=== PATIENT | female | born 1990 | race Hispanic/Latino ===

== ENCOUNTER 2017-08-09 12:58 | Day surgery (SDC) | payer OTHER ==
[2017-08-03 15:46] VITALS: BMI 39.5
[2017-08-09] MEDS ORDERED: Ketorolac Tromethamine 30 MG/ML VIAL ONE (14:14)
[2017-08-09] MEDS ORDERED: CEFAZOLIN/Water 2 GM/20 ML SYRINGE ONE (14:15)
[2017-08-09] MEDS ORDERED: Iothalamate Meglumine 60% 50 ML VIAL FS ONE (16:14)
[2017-08-09] MEDS ORDERED: Bupivacaine/Epinephrine 0.25% 30 ML VIAL ONE (16:14)
[2017-08-09] MEDS ORDERED: Fentanyl 100 MCG/2 ML VIAL ONE (16:17)
[2017-08-09] MEDS ORDERED: Ondansetron HCl/PF 4 MG/2 ML Vial ONE (16:43)
[2017-08-09] MEDS ORDERED: PHENYLEPHRINE-NS 100 MCG/ML 10 ML SYRINGE ONE (16:43)
[2017-08-09] MEDS ORDERED: Propofol 200 MG/20 ML VIAL ONE (16:43)
[2017-08-09] MEDS ORDERED: Dexamethasone 20 MG/5 ML VIAL ONE (16:43)
[2017-08-09] MEDS ORDERED: Lidocaine 2% MPF 10 ML AMP (For Epidural Use) ONE (16:43)
[2017-08-09] MEDS ORDERED: Glycopyrrolate 0.2 MG/ML 5 ML SYRINGE ONE (16:43)
[2017-08-09] MEDS ORDERED: HYDROcodone/Acetaminophen 5/325 mg Tablet ONE (18:15)
--- NOTE | 2017-08-09 22:29 | OP ---
DATE OF PROCEDURE: 08/09/2017 PREOPERATIVE DIAGNOSIS: Symptomatic cholelithiasis. POSTOPERATIVE DIAGNOSIS: Symptomatic cholelithiasis OPERATION PERFORMED: Laparoscopic cholecystectomy with intraoperative cholangiogram. SURGEON: Nickolas Thurston MD ANESTHESIA: General endotracheal. INDICATIONS: The patient is a 27-year-old female who has Down syndrome. Recent laboratory studies revealed elevated liver function tests. Gallbladder ultrasound revealed cholelithiasis. I have recommended laparoscopic cholecystectomy. DESCRIPTION OF OPERATION: Informed consent was obtained. Patient was taken to the operating room w here general endotracheal anesthesia was obtained with the patient in supine position. Abdomen was prepped with ChloraPrep and draped in sterile fashion. Local anesthetic was infiltrated using 0.25% Marcaine with epinephrine. A 11 mm infraumbilical incision was created through which a Veress need le was passed into the peritoneal cavity and pneumoperitoneum established using carbon dioxide up to a pressure of 15 mmHg. An 11-mm trocar port was passed through this same incision. Laparoscopic c amera was passed through this port. Under direct vision, 3 additional 5 mm right upper quadrant por ts were placed. The gallbladder was grasped and retracted in cephalad direction. Infundibulum was grasped and retracted laterally and inferiorly. Careful dissection was carried out the apex of the gallbladder to identify the cystic duct and cystic artery. The artery was divided between clips petra ving two on the side to remain within the abdomen. The duct was clipped proximally and a cholangiog yuli was obtained. This revealed normal ductal anatomy without significant dilatation. There was qu ick passage of contrast into the duodenum. On the first couple of images, there was a rounded defec t up in the right hepatic duct. This did, however, act like an air bubble. I, therefore, flushed w ith saline and repeated the cholangiogram revealing no further evidence of either a stone or air soraya bles. The cholangiocatheter was removed and the duct was doubly clipped distally and divided. The gallbladder was carefully dissected out of the gallbladder fossa using electrocautery. It was remov ed through the umbilical port site. The fascia was closed with 0 Vicryl suture using a GraNee needl e. Right upper quadrant was irrigated and all irrigant was aspirated. There was no evidence of ble eding or bile leak. All ports and instruments were removed under direct vision. Pneumoperitoneum w as carefully evacuated. A 0.25% Marcaine with epinephrine was infiltrated in each port site. Skin edges approximated with 4-0 Monocryl subcuticular sutures and Dermabond was placed externally. Ther e were no complications. The patient tolerated the procedure well and was taken to recovery room in stable condition.
--- NOTE | 2017-08-10 08:25 | RAD ---
INTRAOPERATIVE CHOLANGIOGRAM: DATE: 08/09/17. COMPARISON: None. HISTORY: Cholecystectomy. FINDINGS: Three images from an intraoperative cholangiogram obtained. There is contrast media within the duodenum. There is contrast within nondilated intra- and extrahep atic biliary tree. Cholecystectomy clips are present. There is a linear filling defect involving the distal CBD, most evidence on the third image, which ma y be artifactual in nature. Correlation with real-time imaging is required. Otherwise, this study i s unremarkable. IMPRESSION: Intraoperative cholangiogram as above. POS: [facility]
== END 2017-08-09 19:19 | disposition home or self-care (01) ==
LOC: SDC 12:58
PROVIDERS: ATTEND Specialist
PROC: 0FT44ZZ Resection of Gallbladder, Percutaneous Endoscopic Approach (ICD-10-PCS; principal; 2017-08-09)
PROC: BF0C1ZZ Plain Radiography of Hepatobiliary System, All using Low Osmolar Contrast (ICD-10-PCS; principal; 2017-08-09)
DX: K80.10 Calculus of gallbladder with chronic cholecystitis without obstruction (principal); Q90.9 Down syndrome, unspecified; Z90.89 Acquired absence of other organs; Z98.890 Other specified postprocedural states
CPT/HCPCS: 47532; 88304; J0131; J1100; J1885; J2001; J2405; J2704; J3010; Q9961

== ENCOUNTER 2019-05-09 10:29 | Inpatient (IN) | payer OTHER ==
[2019-05-09 11:21] LABS: Analyzer IN Cardio ER; Base Excess (BEa) -3.4 mEq/L (-2.0 to +3.0); CO2 Tension 31.3 mmHg (35.0-45.0); Calcium, Ionized 1.07 mmol/L (1.12-1.30); Carboxyhemoglobin (COHb) 0.4 gm% (0.0-3.0); Hemoglobin (Hb) 13.3 g/dL (12.0-16.0); Potassium - ABG Lab 2.95 mmol/L (3.70-5.30); pH, Arterial 7.42 (7.35-7.45)
[2019-05-09] MEDS ORDERED: cefTRIAXone\\ROCEPHIN 2 GM VIAL ONE (11:23)
[2019-05-09] MEDS ORDERED: Azithromycin 500 MG VIAL ONE (11:23)
[2019-05-09 11:30] LABS: #Lymphocytes 0.6 thou/uL (1.20-3.40); #Monocytes 0.1 thou/uL (0.11-0.59); #Neutrophils 8.4 thou/uL (1.40-6.50); %Basophils 0.3 % (0.0-1.0); %Eosinophils 0.5 % (0.0-10.0); %Lymphocytes 6.9 % (21.0-51.0); %Monocytes 1.5 % (0.0-10.0); %Neutrophils 90.8 % (42.0-75.0); Hemoglobin 12.9 g/dL (12.0-16.0); Mean Corpuscular HGB CONC 34.4 g/dL (32.0-36.0); Mean Corpuscular Hemoglobin 34.3 pg (27.0-31.0); Mean Corpuscular Volume 99.7 fL (78.0-98.0); Mean Platelet Volume 7.7 fL (7.4-10.4); Platelet Count 195 thou/uL (130-400); RBC Distribution Width 11.7 % (11.5-14.5); Red Blood Cell (RBC) Count 3.76 mill/uL (4.20-5.40); White Blood Cell (WBC) Count 9.3 thou/uL (4.8-10.8)
[2019-05-09 11:31] LABS: Puncture Site L.B.
[2019-05-09 11:32] LABS: ALV-art Gradient 171.555 (0-20)
[2019-05-09 11:54] LABS: ALT (SGPT) 14 U/L (8-55); AST (SGOT) 20 U/L (5-34); Albumin 2.6 g/dL (3.5-5.0); Alkaline Phosphatase 113 U/L (40-150); Anion Gap 14 mmol/L (10-20); BUN (Urea Nitrogen) 5 mg/dL (7.0-18.7); Bilirubin, Total 0.3 mg/dL (0.2-1.2); Calc. Creatinine Clearance 0 mL/min (70-130); Calcium 7.4 mg/dL (7.8-10.44); Carbon Dioxide 23 mmol/L (22-29); Chloride 98 mmol/L (98-107); Estimated GFR-MDRD 88; Globulin 2.9 g/dL (2.4-3.5); Glucose 109 mg/dL (70-105); Potassium 3.1 mmol/L (3.5-5.1); Protein, Total 5.5 g/dL (6.0-8.3); Sodium 132 mmol/L (136-145)
--- NOTE | 2019-05-09 12:13 | RAD ---
PORTABLE CHEST: HISTORY: Dyspnea. Fever. COMPARISON: Chest film of 05/02/2019. FINDINGS: There has been significant change since the prior study. There is now diffuse confluent infiltrate t hroughout the right lung. The left lung remains aerated and clear. The thoracic scoliotic curvature is again noted. IMPRESSION: Diffuse right lung infiltrate is now noted. There may be associated right effusion. POS: [facility]
[2019-05-09] MEDS ORDERED: methylPREDNISolone Sod Succ/PF 125 MG/2 ML VIAL ONE (12:18)
[2019-05-09] MEDS ORDERED: Acetaminophen 325 MG TAB PO PRN (14:25)
[2019-05-09] MEDS ORDERED: Ondansetron ODT 4 MG TAB SL PRN (14:25)
[2019-05-09] MEDS ORDERED: Ondansetron PF 4 MG/2 ML Vial SLOW IVP PRN (17:47)
[2019-05-09] MEDS: Acetaminophen 325 MG TAB PO PRN (18:28)
[2019-05-09] MEDS: NS 0.9% w/ 20 MEQ KCL 1,000 ML IV SCH (18:28)
[2019-05-09] MEDS ORDERED: guaiFENesin ER 600 MG TAB PO SCH (21:00)
[2019-05-09] MEDS: guaiFENesin ER 600 MG TAB PO SCH (21:05)
[2019-05-10] MEDS: NS 0.9% w/ 20 MEQ KCL 1,000 ML IV SCH ×5 (03:22→23:51)
[2019-05-10 05:27] LABS: #Lymphocytes 0.6 thou/uL (1.20-3.40); #Monocytes 0.2 thou/uL (0.11-0.59); #Neutrophils 7.2 thou/uL (1.40-6.50); %Basophils 0.1 % (0.0-1.0); %Eosinophils 0.2 % (0.0-10.0); %Lymphocytes 7.7 % (21.0-51.0); %Monocytes 2.6 % (0.0-10.0); %Neutrophils 89.4 % (42.0-75.0); Hemoglobin 10.5 g/dL (12.0-16.0); Mean Corpuscular HGB CONC 33.7 g/dL (32.0-36.0); Mean Corpuscular Hemoglobin 34.3 pg (27.0-31.0); Mean Platelet Volume 8.1 fL (7.4-10.4); Platelet Count 187 thou/uL (130-400); RBC Distribution Width 11.7 % (11.5-14.5); Red Blood Cell (RBC) Count 3.07 mill/uL (4.20-5.40); White Blood Cell (WBC) Count 8.1 thou/uL (4.8-10.8)
[2019-05-10 05:50] LABS: Anion Gap 13 mmol/L (10-20); BUN (Urea Nitrogen) 5 mg/dL (7.0-18.7); Calc. Creatinine Clearance 153 mL/min (70-130); Calcium 7.2 mg/dL (7.8-10.44); Carbon Dioxide 21 mmol/L (22-29); Chloride 103 mmol/L (98-107); Estimated GFR-MDRD Greater than 90; Glucose 116 mg/dL (70-105); Potassium 3.7 mmol/L (3.5-5.1); Sodium 133 mmol/L (136-145)
--- NOTE | 2019-05-10 08:36 | RAD ---
XR Chest 1 View Portable History: Dyspnea Comparison: Chest radiograph June 2016 Findings: Small effusions. Moderate edema. No pneumothorax. Pulmonary arteries are dilated. Heart siz e is enlarged. Impression: Cardiomegaly, moderate edema, and small effusions all indicating congestive heart failure .
[2019-05-10] MEDS: guaiFENesin ER 600 MG TAB PO SCH ×2 (09:55→20:36)
[2019-05-10] MEDS: Azithromycin 500 MG in Sodium Chloride 0.9% 250 ML 250 ML IVPB SCH (09:55)
[2019-05-10] MEDS: cefTRIAXone\\ROCEPHIN 1 GM in Sodium Chloride 0.9% 100 ML IVPB SCH (09:55)
[2019-05-10] MEDS: Acetaminophen 325 MG TAB PO PRN ×2 (18:32→22:34)
--- NOTE | 2019-05-10 22:44 | CON ---
DATE OF CONSULTATION: 05/10/2019 HISTORY OF PRESENT ILLNESS: Ms. Lewis is a wonderful, pleasant 29-year-old female who was admitted yesterday afternoon with pneumonia. Talking to the nurses and the respiratory therapist, she appeared quite ill on admission with a respiratory rate in the 30s. She would not tolerate BiPAP. Respiratory therapist had the excellent idea to try her on a high-flow cannula and she has done better with that. Her mother says that she is much better today than she was yesterday. The history is provided by the mother because the patient has Down syndrome. She has never been ill like this before. She has no history of aspiration. Her mother says she does not have a heart murmur. She has had a febrile illness since last Tuesday and her mother has actually been sleeping with her just to keep closer tabs on her. PAST MEDICAL HISTORY: Remarkable for hypothyroidism and a cholecystectomy. SOCIAL HISTORY: She is a nonsmoker, nondrinker, and nondrug user. ALLERGIES: SHE HAS NO DRUG ALLERGIES. FAMILY HISTORY: Negative for lung disease in her early age. MEDICATIONS: Prior to admission include; 1. Synthroid. 2. Oral contraceptive agents. PHYSICAL EXAMINATION: GENERAL: She is in no distress. She is breathing in the high 20s. She had some symmetrical respiratory and abdominal wall motion and no signs of fatigue. She was sleeping a lot. Her mother says she was up all night last night. Her mother feels like she is catching up today. VITAL SIGNS: She is afebrile, heart rates in the 90s, blood pressure 124/83, respiratory rate is 24 this afternoon. HEENT: She has Down facies. Pupils are equal. Extraocular movements appear full. Sclerae anicteric. NECK: Supple. LUNGS: Remarkable for crackles in her right chest. Left lung is clear with the exception of end-expiratory wheezes on the left. HEART: Regular rhythm. ABDOMEN: Soft and nontender. EXTREMITIES: Without clubbing, cyanosis, or edema. She will generate a good cough to command. LABORATORY DATA: White count is 8.1, hemoglobin 10.5, platelets 187. Sodium 133, potassium 3.7, chloride 103, bicarb 21, BUN 5, creatinine 0.61, glucose 116, albumin is 2.6. IMPRESSION: A viral illness followed by community-acquired bacterial pneumonia. Given that she did not improve with Omnicef as an outpatient, broad antimicrobial coverage is indicated. She appears to have defervesced with Rocephin and Zithromax. I would recommend decreasing her IV fluids at this point. She is drinking plenty of water according to her mother. Hopefully, she is starting to show signs of improvement. Her mother is adamant that she is much better than she was yesterday. My 1st impression was that she probably need to be in the critical care unit and even might need to be intubated, but I sat in the room with her for probably 25 minutes, watching her breathe and talking to her mother and I left the room feeling like it was safe to continue with current care measures. Mother is comfortable with this approach. This is a 70-minute consult, 50% of the time was spent on the unit coordinating care. Job ID: [id number] MTDJonathan
[2019-05-11 05:13] LABS: #Eosinphils 0.1 thou/uL (0.0-0.7); #Lymphocytes 1.3 thou/uL (1.20-3.40); #Monocytes 0.4 thou/uL (0.11-0.59); #Neutrophils 8.5 thou/uL (1.40-6.50); %Basophils 0.1 % (0.0-1.0); %Eosinophils 0.7 % (0.0-10.0); %Lymphocytes 12.9 % (21.0-51.0); %Monocytes 3.7 % (0.0-10.0); %Neutrophils 82.6 % (42.0-75.0); Hemoglobin 10.8 g/dL (12.0-16.0); Mean Corpuscular HGB CONC 33.5 g/dL (32.0-36.0); Mean Corpuscular Hemoglobin 34.2 pg (27.0-31.0); Mean Platelet Volume 8.1 fL (7.4-10.4); Platelet Count 196 thou/uL (130-400); RBC Distribution Width 11.9 % (11.5-14.5); Red Blood Cell (RBC) Count 3.16 mill/uL (4.20-5.40); White Blood Cell (WBC) Count 10.2 thou/uL (4.8-10.8)
[2019-05-11 05:35] LABS: Iron 22 ug/dL (50-170); Iron Binding Capacity, Total 143 mcg/dL (265-497)
[2019-05-11 06:07] LABS: Folate (Folic Acid) 12.8 ng/mL (7.0-31.4)
--- NOTE | 2019-05-11 08:05 | RAD ---
EXAM: XR Chest 1 View Portable PROVIDED CLINICAL HISTORY: Pneumonia. Follow-up evaluation. COMPARISON: 05/10/2019 FINDINGS: There are bilateral interstitial and alveolar opacities much greater on the right with areas of conso lidation seen in the right midlung zone and right lung base and to a lesser extent at the left lung base. There are associated bilateral pleural effusions. The right cardiac border is obscured. Right c onvex scoliosis thoracic spine is seen. No other interval change. IMPRESSION: 1. Bilateral interstitial and alveolar opacities much greater on the right. Findings may be related t o infectious process or possibly atypical infectious process. 2. Small bilateral pleural effusions.
[2019-05-11] MEDS: Acetaminophen 325 MG TAB PO PRN ×2 (08:56→15:40)
[2019-05-11] MEDS: guaiFENesin ER 600 MG TAB PO SCH ×2 (08:57→20:44)
[2019-05-11] MEDS: NS 0.9% w/ 20 MEQ KCL 1,000 ML IV SCH ×2 (09:34→20:47)
--- NOTE | 2019-05-11 09:44 | PRG ---
DATE OF SERVICE: 05/11/2019 SUBJECTIVE: Ms. Lewis actually looks a little better today. She was sitting on the bedside commode when I evaluated her. She is minimally verbal, but her mother was with her all night and said she had a better night. OBJECTIVE: VITAL SIGNS: She is afebrile, heart rate is 112, respiratory rate is in the high 20s, oximetry is 98% on 35% now, and blood pressure 136/96. LUNGS: Still remarkable for crackles on the right and a little on the left. HEART: Regular rhythm. S1 and S2 are normal. ABDOMEN: Soft and nontender. LABORATORY DATA: White count 10.2, hemoglobin 10.8, and platelets 196. ASSESSMENT AND PLAN: Pneumonia, community acquired, likely after a viral illness. She is clinically improving on a daily basis. Blood cultures remain negative. She will continue on broad antimicrobial coverage given that her pneumonia developed while she was on Omnicef. It is certainly possible that this represents an atypical organism. We will go ahead and decrease her IV fluids a little more given that her p.o. intake appears to be adequate. Job ID: [id number]
[2019-05-11] MEDS: Azithromycin 500 MG in Sodium Chloride 0.9% 250 ML 250 ML IVPB SCH (10:51)
[2019-05-11] MEDS: cefTRIAXone\\ROCEPHIN 1 GM in Sodium Chloride 0.9% 100 ML IVPB SCH (10:51)
--- NOTE | 2019-05-11 14:38 | HP ---
She was transferred in from the emergency room to the ICU. CHIEF COMPLAINT: On admission from the ER, the patient was found to have shortness of breath with O2 sats in the 70s on room air. On admission, she was found to have pneumonia in the right lobe. HISTORY OF PRESENT ILLNESS: This patient is a 29-year-old female, who has Down syndrome. She presented to office today with shortness of breath, fever, tachypnea, tachycardia for 1 week. The patient is mostly nonverbal and can communicate very few words, who kept saying "ow" when she would touch her chest. The patient's mother took her to an urgent care a week ago, was prescribed cefdinir for congestion and sent home. The patient's mother reports she began to get worse 2 days ago, not sleeping, does not appear for any confusion when she was in office. Upon presentation into the office, the patient's O2 sats were 68% on room air. The patient normally does well without any problems, but mother said the fever has gotten into 103.7 at home and given Tylenol and ibuprofen and it has only come down to 99 at home and then will spike for about 30 to 45 minutes and then spikes back up. Chest x-ray was presented in the ER showed pneumonia to the right side. The patient was placed on a BiPAP machine and admitted into the IMCU for further workup. Therefore, due to low O2 sats and vitals on presentation, the patient was admitted into the hospital for further evaluation. Lab work has been fairly unremarkable with no other acute findings. PAST MEDICAL HISTORY: Includes; 1. Down syndrome. 2. Hyperlipidemia. 3. Hypothyroidism. PAST SURGICAL HISTORY: Includes gallbladder removal. SOCIAL HISTORY: The patient does not smoke or drink. The patient's mother does not smoke or drink. Mother is her primary director employee safety and health at home. She lives with her mom and her dad. The patient is verbal, says a few words. She is able to communicate very briefly with about 30 words per the mother. PSYCHIATRIC HISTORY: Negative. ALLERGIES: THE PATIENT DOES NOT HAVE ANY ALLERGIES. MEDICATION LIST: On admission, she takes levothyroxine 25 mcg oral tablet by mouth daily. She is also on a low-dosage control pill. REVIEW OF SYSTEMS: GENERAL: Weakness, fatigue, fever, chills, and body aches per the mother, with the patient touching her chest saying "ow." Fever at home was 103.2. HEENT: Nonsignificant drainage from eyes, ears, nose, or throat. No sores or lesions. RESPIRATORY: Dyspnea and tachypnea per the mother, also complains of cough that was productive. Mother denies the patient having any severe chest pain, edema, sweating, or palpitations that she could tell. The mother denies any nausea, diarrhea, or abdominal pain. Reports that the patient is eating well and drinking well. NEUROMUSCULAR: Mother denies any significant pain. SKIN: Mother reports her being hot to touch and very dry. NEUROLOGICAL: She has Down syndrome. She is only to able to communicate with a few words. PHYSICAL EXAMINATION: VITAL SIGNS: She had a fever of 100.3, blood pressure 100/60, she was 67% on room air, heart rate was 128, and respiratory rate was 29. GENERAL: The patient appears in slight distress with breathing. She is more of a pursed lip breathing with dry mucous membranes. She is a female. She smiles and interacting with provider. HEENT: Normocephalic. Pupils are round, equal, and reactive. TMs are clear. Nares and pharynx are clear. NECK: Supple. Trachea is midline. CHEST: Rales bilaterally with diminished breath sounds. O2 sats are 68% on room air. BREASTS: Deferred. CARDIOVASCULAR: She is tachycardic. There is no peripheral edema. Capillary refill is less than 3. ABDOMEN: Soft, nontender. : Deferred. EXTREMITIES: Did not have any clubbing, cyanosis, or edema. SKIN: Warm to touch, hot, pale, once again with dry mucous membranes. NEUROLOGIC: The patient is able to smile, lift her eyebrows, she does grab hands and had good muscle, gait, and strength when walking. Sensory exam is intact. LABORATORY DATA: Laboratory data workup is posted. ASSESSMENT: A 29-year-old female diagnosed with; 1. Right lower lobe pneumonia. 2. Down syndrome. 3. Fever. 4. Tachycardia. 5. Tachypnea with low oxygen saturation. PLAN: Plan is to monitor, hydrate, give antibiotics, medications with serial re-evaluation on the patient in the morning. Plan is also to include repeat a chest x-ray. Dictated by Usha Asif NP, for Dr. Johana Lawrence. Job ID: [id number] [facility]
[2019-05-11] MEDS: Acetaminophen 325 MG TAB PO SCH (20:44)
[2019-05-11] MEDS: Ferrous Sulfate 325 MG TAB PO SCH (20:44)
[2019-05-12] MEDS: Acetaminophen 325 MG TAB PO SCH ×6 (00:33→21:03)
[2019-05-12 05:16] LABS: #Eosinphils 0.1 thou/uL (0.0-0.7); #Lymphocytes 1.2 thou/uL (1.20-3.40); #Monocytes 0.5 thou/uL (0.11-0.59); #Neutrophils 9.3 thou/uL (1.40-6.50); %Basophils 0.1 % (0.0-1.0); %Eosinophils 0.7 % (0.0-10.0); %Monocytes 4.1 % (0.0-10.0); %Neutrophils 84.1 % (42.0-75.0); Hemoglobin 11.5 g/dL (12.0-16.0); Mean Corpuscular HGB CONC 33.2 g/dL (32.0-36.0); Mean Corpuscular Hemoglobin 33.8 pg (27.0-31.0); Mean Platelet Volume 8.5 fL (7.4-10.4); Platelet Count 204 thou/uL (130-400); RBC Distribution Width 12.1 % (11.5-14.5); Red Blood Cell (RBC) Count 3.39 mill/uL (4.20-5.40)
--- NOTE | 2019-05-12 09:02 | RAD ---
PORTABLE CHEST ONE VIEW: 05/12/2019 5:07 a.m. HISTORY: Pneumonia. COMPARISON: Exam from the previous day. FINDINGS: The heart size is normal. There are bilateral lung opacities, right greater than left, likely due to pneumonia, with accompanying small effusions, unchanged. POS: [facility]
[2019-05-12] MEDS: Docusate 100 MG CAP PO SCH (09:31)
[2019-05-12] MEDS: Ferrous Sulfate 325 MG TAB PO SCH ×2 (09:31→21:03)
[2019-05-12] MEDS: guaiFENesin ER 600 MG TAB PO SCH ×2 (09:31→21:03)
[2019-05-12] MEDS: cefTRIAXone\\ROCEPHIN 1 GM in Sodium Chloride 0.9% 100 ML IVPB SCH (11:32)
[2019-05-12] MEDS: Azithromycin 500 MG in Sodium Chloride 0.9% 250 ML 250 ML IVPB SCH (11:33)
[2019-05-12] MEDS ORDERED: Albuterol Sulfate 1.25 MG/3 ML NEB NEB PRN (15:00)
--- NOTE | 2019-05-12 15:20 | PRG ---
DATE OF SERVICE: 05/12/2019 SERVICE: Pulmonary Medicine. INTERVAL HISTORY: The patient is doing okay from respiratory standpoint. She does not like using the high-flow nasal cannula. She constantly pulls on it. Because of this, she actually got a little skin tear on her lip. We de-escalated to the nasal cannula. This is more reliable way to deliver her oxygen because she does not mess with it. There were no significant other overnight events. She recently got up to the bathroom, and so she is a touch more tachycardic today. Additionally, the albuterol caused her to have increasing tachyarrhythmia. PHYSICAL EXAMINATION: VITAL SIGNS: Afebrile. Pulse 131, blood pressure 159/91, respirations 31, saturation 93% on 4 L nasal cannula. GENERAL: The patient is awake and alert. She is in mild respiratory distress with tachypnea. HEENT: Normocephalic and atraumatic. Sclerae are white. Conjunctivae are pink. Oral mucosa is moist without lesions. LUNGS: Decent air entry. There are extensive rhonchi, crackles and wheezing present. HEART: Normal rate, regular. ABDOMEN: Soft, nontender, nondistended. Bowel sounds are positive. MUSCULOSKELETAL: No cyanosis or clubbing. There is no pitting in the bilateral lower extremities. NEUROLOGIC: Grossly nonfocal. LABORATORY DATA: WBC 11.0, hemoglobin 11.5, and platelets 204,000. PH 7.42, pCO2 of 31, PO2 of 46. Sodium 133. Basic metabolic profile is otherwise unremarkable. TIBC and iron stores are low. Folate and B12 levels are within the normal limits. Liver function studies are unremarkable. Lactate 1.6. Blood cultures x2 are unremarkable. IMAGING: Chest x-ray demonstrates bilateral pleural effusions, and extensive infiltrates throughout bilateral lung babb. The right appears to be a little bit worse than the left. ASSESSMENT: 1. Acute hypoxic respiratory failure. 2. Community-acquired pneumonia. DISCUSSION AND PLAN: Agree with current antimicrobial coverage. I will send a respiratory virus panel. We will also get a BNP, and troponin. Pulmonary/Critical Care will follow very closely. Job ID: [id number]
[2019-05-12] MEDS ORDERED: predniSONE 20 MG TAB PO SCH (15:30)
[2019-05-12 16:11] LABS: Troponin I Less than 0.010 ng/mL (< 0.028)
[2019-05-12] MEDS ORDERED: Furosemide 20 MG/2 ML VIAL SLOW IVP SCH (17:15)
[2019-05-12] MEDS ORDERED: Albuterol Sulfate 1.25 MG/3 ML NEB INH SCH (19:00)
[2019-05-12] MEDS: diphenhydrAMINE 25 MG CAP PO PRN (21:03)
[2019-05-13] MEDS: Acetaminophen 325 MG TAB PO SCH ×6 (01:18→20:42)
[2019-05-13 07:30] LABS: Anion Gap 12 mmol/L (10-20); BUN (Urea Nitrogen) 6 mg/dL (7.0-18.7); Calc. Creatinine Clearance 147 mL/min (70-130); Calcium 7.6 mg/dL (7.8-10.44); Carbon Dioxide 27 mmol/L (22-29); Chloride 100 mmol/L (98-107); Estimated GFR-MDRD Greater than 90; Glucose 115 mg/dL (70-105); Potassium 4.1 mmol/L (3.5-5.1); Sodium 135 mmol/L (136-145)
[2019-05-13 07:41] LABS: Band 8 % (5-11); Hemoglobin 11.6 g/dL (12.0-16.0); Large Platelets SLIGHT; Lymphocytes 6 % (21-51); MDiff Complete? YES; Mean Corpuscular HGB CONC 34.3 g/dL (32.0-36.0); Mean Corpuscular Hemoglobin 35.1 pg (27.0-31.0); Mean Platelet Volume 9.2 fL (7.4-10.4); Monocytes 3 % (0-10); Neutrophil 83 % (42-75); Platelet Count 222 thou/uL (130-400); RBC Distribution Width 12.1 % (11.5-14.5); Toxic Granulation SLIGHT; White Blood Cell (WBC) Count 11.4 thou/uL (4.8-10.8)
[2019-05-13] MEDS ORDERED: predniSONE 20 MG TAB PO SCH (08:00)
--- NOTE | 2019-05-13 08:59 | RAD ---
AP CHEST: HISTORY: Pneumonia followup. ICU followup. Pleural effusions. COMPARISON: 05/12/2019 FINDINGS: There are bilateral alveolar infiltrates and bilateral effusions. IMPRESSION: Findings are unchanged from yesterday. POS: [facility]
[2019-05-13] MEDS: Docusate 100 MG CAP PO SCH (09:07)
[2019-05-13] MEDS: Ferrous Sulfate 325 MG TAB PO SCH ×2 (09:08→20:41)
[2019-05-13] MEDS: guaiFENesin ER 600 MG TAB PO SCH ×2 (09:08→20:41)
[2019-05-13] MEDS ORDERED: Furosemide 20 MG/2 ML VIAL SLOW IVP SCH (10:30)
[2019-05-13] MEDS: cefTRIAXone\\ROCEPHIN 1 GM in Sodium Chloride 0.9% 100 ML IVPB SCH (11:06)
--- NOTE | 2019-05-13 11:15 | PRG ---
DATE OF SERVICE: 05/13/2019 SERVICE: Pulmonary Medicine. INTERVAL HISTORY: The patient is doing okay from respiratory standpoint. She seems to be holding her own for the most part. She cannot provide any additional elements of the history. Last night, she continued to remove her oxygen. As such, she had intermittent desaturation. PHYSICAL EXAMINATION: VITAL SIGNS: Currently, afebrile with a T-max of 99.4. Pulse 104, blood pressure 109/80, respirations 27, and saturation 90% on high-flow nasal cannula. GENERAL: The patient is awake and alert, in no apparent distress. LUNGS: Very good air entry. Extensive crackles are present. No prolonged expiratory phase or wheezing is appreciated. HEART: Tachycardic. Regular. ABDOMEN: Soft, nontender, and nondistended. Bowel sounds are positive. MUSCULOSKELETAL: No cyanosis or clubbing. There is no pitting in the bilateral lower extremities. NEUROLOGIC: Grossly nonfocal. LABORATORY DATA: WBC 11.4, hemoglobin 11.6, platelets 222,000. Basic metabolic profile is otherwise improving with a calcium of 7.6, sodium is improved to 135. Creatinine is stable. TSH falls within normal limits. Blood cultures x2 and respiratory virus panel are unremarkable. Fecal occult blood is positive. IMAGING: Chest x-ray demonstrates extensive bilateral infiltrates. There appears to be fluid in the fissure, and also a likely right-sided pleural effusion present. ASSESSMENT: 1. Acute hypoxic respiratory failure. 2. Community-acquired pneumonia. 3. Herpes simplex virus, suspected. DISCUSSION AND PLAN: I will send the lip lesion for an HSV 1 and 2 PCR. We will continue supportive care including antibiotics. I will give her an additional dose of Lasix today. We are looking forward to seeing the echocardiogram. If her oxygen requirements continue to trend upward, I do believe that empiric steroids will need to be initiated. Pulmonary/Critical Care will follow very closely. The patient's lungs are critically ill. If this progresses, there is a very strong likelihood that the patient will pass away from this issue. Job ID: [id number]
[2019-05-13] MEDS: diphenhydrAMINE 25 MG CAP PO PRN (20:42)
[2019-05-14] MEDS: Acetaminophen 325 MG TAB PO SCH ×6 (00:24→21:43)
[2019-05-14 05:06] LABS: #Eosinphils 0.1 thou/uL (0.0-0.7); #Lymphocytes 1.2 thou/uL (1.20-3.40); #Monocytes 0.6 thou/uL (0.11-0.59); #Neutrophils 8.6 thou/uL (1.40-6.50); %Basophils 0.1 % (0.0-1.0); %Eosinophils 0.9 % (0.0-10.0); %Lymphocytes 11.4 % (21.0-51.0); %Monocytes 5.2 % (0.0-10.0); %Neutrophils 82.3 % (42.0-75.0); Hemoglobin 11.5 g/dL (12.0-16.0); Mean Corpuscular HGB CONC 34.2 g/dL (32.0-36.0); Mean Corpuscular Hemoglobin 35.2 pg (27.0-31.0); Mean Platelet Volume 8.6 fL (7.4-10.4); Platelet Count 257 thou/uL (130-400); RBC Distribution Width 12.5 % (11.5-14.5); Red Blood Cell (RBC) Count 3.26 mill/uL (4.20-5.40); White Blood Cell (WBC) Count 10.4 thou/uL (4.8-10.8)
[2019-05-14 05:19] LABS: Anion Gap 15 mmol/L (10-20); BUN (Urea Nitrogen) 7 mg/dL (7.0-18.7); Calc. Creatinine Clearance 140 mL/min (70-130); Calcium 8.5 mg/dL (7.8-10.44); Carbon Dioxide 22 mmol/L (22-29); Chloride 101 mmol/L (98-107); Estimated GFR-MDRD Greater than 90; Glucose 92 mg/dL (70-105); Phosphorus 3.3 mg/dL (2.3-4.7); Potassium 4.4 mmol/L (3.5-5.1); Sodium 134 mmol/L (136-145)
[2019-05-14] MEDS: guaiFENesin ER 600 MG TAB PO SCH ×2 (09:16→21:44)
[2019-05-14] MEDS: Ferrous Sulfate 325 MG TAB PO SCH ×2 (09:16→21:43)
[2019-05-14] MEDS: Docusate 100 MG CAP PO SCH (09:16)
--- NOTE | 2019-05-14 12:02 | PQF ---
ANASTACIA AWAN MICHAEL E MD [id number] [facility]- B09 [id number] CLINICAL DOCUMENTATION IMPROVEMENT CLARIFICATION FORM: ICD-10 Updated PLEASE DO AN ADDENDUM TO THE PROGRESS NOTE WITH ANY DOCUMENTATION UPDATES OR ADDITIONS AND CARRY THROUGH TO DC SUMMARY. THANK YOU. DATE: 05/14/2019 ATTN:DR. J Carlos KEE Please exercise your independent, professional judgment in responding to the clarification form. Clinical indicators are provided on the bottom of this form for your review. Please check appropriate box(s): [ ] Acute Respiratory Failure: [ ] with Hypoxia [ ] with Hypercapnia [ x ] Acute Respiratory Failure due to: Pneumonia [ ] Other diagnosis [ ] Unable to determine In addition, please specify: Present on Admission (POA): [ x ] Yes [ ] No [ ] Unable to determine For continuity of documentation, please document condition throughout progress notes and discharge summary. Thank You. CLINICAL INDICATORS - SIGNS / SYMPTOMS / LABS 05/09 ([facility]A) DX HYPOXIA PNEUMONIA SEPSIS 05/12 PN (V[facility]HYA) HYPOXEMIC- DE-SATS TO 80'S IF OFF O2 < 1 MINUTE 05/13 PN (VIDHYA) 2. ) HYPOXEMIA 05/14 PN (VIDHYA) 2). HYPOXEMIA RISK: PNEUMONIA ([facility]IDHYA) HYPOXIC TREATMENTS PULMONOLOGY CONSULT SUPPLEMENTAL O2 SERIAL CXR THANK YOU! NATHAN (This form is maintained as a part of the permanent medical record) 2014 [employer] All Rights Reserved [email or web address] [phone] MTDD
[2019-05-14] MEDS ORDERED: predniSONE 20 MG TAB PO SCH (13:15)
[2019-05-14] MEDS: cefTRIAXone\\ROCEPHIN 1 GM in Sodium Chloride 0.9% 100 ML IVPB SCH (13:19)
--- NOTE | 2019-05-14 13:30 | PRG ---
DATE OF SERVICE: 05/14/2019 SERVICE: Pulmonary Medicine. INTERVAL HISTORY: The patient is doing poorly from a respiratory standpoint. Her oxygen requirements still remain elevated. She cannot provide any additional elements of the history. She had another rough night. That being said, she slept most in the morning and is appearing a little bit more refreshed right now. PHYSICAL EXAMINATION: VITAL SIGNS: Afebrile, pulse 99, blood pressure 111/79, respirations 38, saturation 95% on high-flow nasal cannula delivering 54% FiO2. GENERAL: The patient is awake and alert. No apparent distress. LUNGS: Good air entry. Extensive crackling is present throughout bilateral lung babb. HEART: Normal rate, regular. ABDOMEN: Soft, nontender, and nondistended. Bowel sounds are positive. MUSCULOSKELETAL: No cyanosis or clubbing. There is no pitting in the bilateral lower extremities. NEUROLOGIC: Grossly nonfocal. LABORATORY DATA: WBC 10.4, hemoglobin 11.5, and platelets 257,000. Sodium 134. Basic metabolic profile, magnesium, and phosphorous are all essentially unremarkable. Her bicarb is downtrending to 22. Respiratory virus panel is unremarkable. Blood cultures x2 are negative. HSV is currently pending. IMAGING STUDIES: Echocardiogram demonstrates a normal ejection fraction. Mild mitral regurgitation is noted. No significant diastology is present. ASSESSMENT: 1. Acute hypoxic respiratory failure. 2. Community-acquired pneumonia, possible. 3. Herpes simplex virus, suspected. 4. Acute interstitial pneumonitis. DISCUSSION AND PLAN: I will get a CT of the chest to characterize the pattern of injury of her lung. I am going to empirically initiate steroids. Pulmonary/Critical Care will continue to follow along while the patient remains inhouse. Job ID: [id number]
--- NOTE | 2019-05-14 16:04 | CT ---
Exam: Head CT without contrast HISTORY: Shortness of breath. Eval for pulmonary infiltrate COMPARISON: None FINDINGS: Limited evaluation due to lack of IV contrast and due to motion degradation No mediastinal mass, lymphadenopathy or hematoma. Heart size is within normal limits. No significant pericardial fluid. Visualized aorta has a normal caliber Visualized upper solid organs are grossly unremarkable There are patchy groundglass and alveolar opacities throughout the lung parenchyma. Consolidation in the left lower lobe, right lower lobe and right upper lobe may also be due to multi lobar pneumonia versus aspiration versus atelectasis. There are small bilateral pleural effusions. There is a scoliotic S-shaped curvature of the thoracic spine. Sclerotic focus at T6 likely represent ing a small bone island. IMPRESSION: 1. Small bilateral pleural effusions 2. Diffuse groundglass opacities which may be due to edema. 3. Multi lobar consolidation with air bronchograms. Correlate for multi lobar pneumonia. Atelectasis or aspiration cannot noted. Continued surveillance is recommended.
[2019-05-14] MEDS: diphenhydrAMINE 25 MG CAP PO PRN (22:28)
[2019-05-14] MEDS: NS 0.9% w/ 20 MEQ KCL 1,000 ML IV SCH (22:28)
[2019-05-15] MEDS: Acetaminophen 325 MG TAB PO SCH ×6 (01:58→22:15)
[2019-05-15 05:45] LABS: #Lymphocytes 1.2 thou/uL (1.20-3.40); #Monocytes 0.5 thou/uL (0.11-0.59); #Neutrophils 6.2 thou/uL (1.40-6.50); %Basophils 0.6 % (0.0-1.0); %Eosinophils 0.4 % (0.0-10.0); %Lymphocytes 15.1 % (21.0-51.0); %Monocytes 6.3 % (0.0-10.0); %Neutrophils 77.7 % (42.0-75.0); Hemoglobin 11.1 g/dL (12.0-16.0); Mean Platelet Volume 8.9 fL (7.4-10.4); Platelet Count 290 thou/uL (130-400); RBC Distribution Width 12.5 % (11.5-14.5); Red Blood Cell (RBC) Count 3.09 mill/uL (4.20-5.40)
[2019-05-15] MEDS: Ferrous Sulfate 325 MG TAB PO SCH ×2 (08:13→20:32)
[2019-05-15] MEDS: predniSONE 20 MG TAB PO SCH (08:14)
[2019-05-15] MEDS: guaiFENesin ER 600 MG TAB PO SCH ×2 (08:14→20:32)
[2019-05-15] MEDS: Docusate 100 MG CAP PO SCH (08:14)
[2019-05-15] MEDS ORDERED: Furosemide 20 MG/2 ML VIAL SLOW IVP SCH (08:30)
[2019-05-15] MEDS: cefTRIAXone\\ROCEPHIN 1 GM in Sodium Chloride 0.9% 100 ML IVPB SCH (11:36)
[2019-05-15] MEDS ORDERED: Metoprolol Tartrate 25 MG TAB PO SCH (11:45)
--- NOTE | 2019-05-15 12:04 | PRG ---
DATE OF SERVICE: 05/15/2019 SERVICE: Pulmonary Medicine. INTERVAL HISTORY: The patient is doing okay from respiratory standpoint. After initiating steroids, cough seemed to viviana. Additionally, she got some consolidated sleep last night, which was good for the patient and her mom. She denies any overnight events, fevers, chills, or sputum production. Her oxygen requirements remained quite elevated. That being said, the patient appears to be less toxic today. She remains quite tachypneic. PHYSICAL EXAMINATION: VITAL SIGNS: Afebrile, pulse 120, blood pressure 146/101, respirations 40, and saturation 90% on 30 L of high-flow with 54% FiO2. HEENT: Normocephalic and atraumatic. Sclerae white. Conjunctivae pink. Oral mucosa is moist without lesions. LUNGS: Decent air entry. Crackles are much less intense today. No prolonged expiratory phase or wheezing is appreciated. HEART: Normal rate. Regular. ABDOMEN: Soft, nontender, and nondistended. Bowel sounds are positive. MUSCULOSKELETAL: No cyanosis or clubbing. There is no pitting in the bilateral lower extremities. NEUROLOGIC: Grossly nonfocal. LABORATORY DATA: WBC 8.0, hemoglobin 11.1, and platelets 290,000. Sodium 134. Basic metabolic profile, magnesium, and phosphorus are all unremarkable. Respiratory virus panel is unremarkable. Blood cultures x2 are negative. IMAGING: CT of the chest demonstrates bilateral ground-glass opacifications. There is also overt consolidating lesions that are scattered about the lung. Small bilateral pleural effusions are noted. The significance of this is unknown. Interstitial fullness is present. Consolidating lesions are limited to the right upper lobe, right middle lobe, and right lower lobe. ASSESSMENT: 1. Acute hypoxic respiratory failure. 2. Community-acquired pneumonia, possible. 3. Herpes simplex virus, suspected. 4. Acute interstitial pneumonitis. DISCUSSION AND PLAN: The patient is briefly not really behaving as though she is volume overloaded. I will introduce a beta tin. Hopefully, we can slow her heart rate down, which may have a positive impact on her cardiac output. If the HSV is positive, we will initiate antiviral therapy. I am going to give her another day or two to see how she progresses. If her oxygen requirements improve, we will hold the line. If not, I will send off multiple serologies looking at secondary cause of interstitial lung diseases. An ultrasound of the lung will be performed tomorrow morning. If there is a generous pocket of fluid, a thoracentesis will be considered. Job ID: [id number]
[2019-05-15] MEDS: Metoprolol Tartrate 25 MG TAB PO SCH (20:33)
[2019-05-15] MEDS: diphenhydrAMINE 25 MG CAP PO PRN (23:01)
[2019-05-16] MEDS: Acetaminophen 325 MG TAB PO SCH ×6 (01:21→22:12)
[2019-05-16 06:25] LABS: #Lymphocytes 1.7 thou/uL (1.20-3.40); #Monocytes 0.9 thou/uL (0.11-0.59); #Neutrophils 5.6 thou/uL (1.40-6.50); %Basophils 0.1 % (0.0-1.0); %Eosinophils 0.5 % (0.0-10.0); %Lymphocytes 20.3 % (21.0-51.0); %Monocytes 10.7 % (0.0-10.0); %Neutrophils 68.4 % (42.0-75.0); Hemoglobin 11.5 g/dL (12.0-16.0); Mean Corpuscular HGB CONC 33.7 g/dL (32.0-36.0); Mean Corpuscular Hemoglobin 34.8 pg (27.0-31.0); Mean Platelet Volume 8.8 fL (7.4-10.4); Platelet Count 294 thou/uL (130-400); RBC Distribution Width 12.4 % (11.5-14.5); Red Blood Cell (RBC) Count 3.31 mill/uL (4.20-5.40); White Blood Cell (WBC) Count 8.2 thou/uL (4.8-10.8)
--- NOTE | 2019-05-16 08:23 | RAD ---
PORTABLE AP CHEST X-RAY: HISTORY: Pneumonia. Bilateral pulmonary infiltrates. COMPARISON: 05/13/2019 FINDINGS: There are bilateral interstitial and, to a lesser extent, alveolar opacities within the lungs bilater ally. The parenchymal opacities, especially on the right, have improved when compared to the prior e xam. There is a tiny right pleural effusion with a questionable tiny left pleural effusion. The car diac silhouette is within normal limits. S-shaped scoliotic curvature of the thoracolumbar spine is again noted. IMPRESSION: 1. Improvement in bilateral interstitial and alveolar opacities, which may be related to improving p ulmonary edema or improving pneumonia. Continued followup to complete resolution is recommended. 2. Tiny right pleural effusion. POS: C
[2019-05-16] MEDS: predniSONE 20 MG TAB PO SCH (09:24)
[2019-05-16] MEDS: guaiFENesin ER 600 MG TAB PO SCH ×2 (09:24→20:27)
[2019-05-16] MEDS: Ferrous Sulfate 325 MG TAB PO SCH ×2 (09:24→20:27)
[2019-05-16] MEDS: Metoprolol Tartrate 25 MG TAB PO SCH ×2 (09:25→20:27)
[2019-05-16] MEDS: Docusate 100 MG CAP PO SCH (09:25)
[2019-05-16] MEDS: Acyclovir Sodium 700 MG, Admixture Fee 1 EACH in Sodium Chloride 0.9% 100 ML IVPB SCH ×2 (09:26→17:42)
[2019-05-16] MEDS: cefTRIAXone\\ROCEPHIN 1 GM in Sodium Chloride 0.9% 100 ML IVPB SCH (13:01)
--- NOTE | 2019-05-16 14:25 | PRG ---
DATE OF SERVICE: 05/16/2019 SERVICE: Pulmonary Medicine. INTERVAL HISTORY: The patient is actually doing much better today. Her cough still present but not nearly as severe as it was originally. She got started on acyclovir for the lesion on the lip. Ultimately, her oxygen requirements have improved dramatically overnight. Her heart rate is under much better control. There has been no interval change to her condition otherwise. PHYSICAL EXAMINATION: VITAL SIGNS: Afebrile, pulse 107, blood pressure 125/78, respirations 33, saturation 98%, now on 40% FiO2 with a flow of 30 L/minute. HEENT: Normocephalic and atraumatic. Sclerae white. Conjunctivae pink. Oral mucosa is moist without lesions. LUNGS: Decent air entry. Crackles still predominate. No prolonged expiratory phase or wheezing is appreciated. HEART: Normal rate, regular. ABDOMEN: Soft, nontender, nondistended. Bowel sounds are positive. MUSCULOSKELETAL: No cyanosis or clubbing. No pitting in the bilateral lower extremities. NEUROLOGIC: Grossly nonfocal. LABORATORY DATA: WBC 8.2, hemoglobin 11.5, platelets 294,000. Neutrophil count has returned to normal. Lymphocyte and monocyte count are actually rebounding. Basic metabolic profile, magnesium, and phosphorus are completely unremarkable. HSV-1 is positive by DNA PCR. HSV-2 is negative. Blood cultures, respiratory virus panel, and stool cultures are all negative to date. IMAGING DATA: Chest x-ray demonstrates interval improvement in the interstitial lung disease bilaterally, small bilateral pleural effusions are present. ASSESSMENT: 1. Acute hypoxic respiratory failure, improving. 2. Community-acquired pneumonia, unlikely. 3. Herpes labialis, status post initiation of therapy. 4. Interstitial pneumonitis, improving with steroids. DISCUSSION AND PLAN: It is still not quite clear to me what we are dealing with. That being said, she seems to be improving with combination of her current therapy. She has had more than enough of the Rocephin. This will be interrupted today. We will give her 7-day course of levofloxacin. IV fluids have been completely interrupted. We are going to continue with a heart rate control with metoprolol. Hopefully, this will allow her to auto diurese down to euvolemia. I am incredibly reassured to see the patient's oxygen requirements improving. If we improve over the next 24 hours, we will likely be able to transition over to nasal cannula and consider transition to the floor. I will give her a laboratory holiday tomorrow morning. Job ID: [id number]
[2019-05-16] MEDS: diphenhydrAMINE 25 MG CAP PO PRN (22:13)
[2019-05-17] MEDS: Acyclovir Sodium 700 MG, Admixture Fee 1 EACH in Sodium Chloride 0.9% 100 ML IVPB SCH ×3 (01:18→18:11)
[2019-05-17] MEDS: Acetaminophen 325 MG TAB PO SCH ×3 (02:11→08:58)
[2019-05-17] MEDS: Levothyroxine Sodium 25 MCG TAB PO SCH (05:06)
[2019-05-17] MEDS: Docusate 100 MG CAP PO SCH (08:57)
[2019-05-17] MEDS: guaiFENesin ER 600 MG TAB PO SCH ×2 (08:57→20:16)
[2019-05-17] MEDS: predniSONE 20 MG TAB PO SCH (08:58)
[2019-05-17] MEDS: Ferrous Sulfate 325 MG TAB PO SCH ×2 (08:58→20:17)
[2019-05-17] MEDS: Metoprolol Tartrate 25 MG TAB PO SCH ×2 (09:09→20:16)
--- NOTE | 2019-05-17 10:25 | RAD ---
PORTABLE AP CHEST XRAY: HISTORY: Pneumonia. Followup evaluation. COMPARISON: 05/16/2019. FINDINGS: This exam is obtained in shallow depth of inspiration, and the patient's jaw and mandible overlie the right lung apex and upper lobe obscuring this region. Again noted are mild increase in interstitial and alveolar opacities primarily in a perihilar location not significantly changed from the prior st udy given differences in technique. Cardiac silhouette is normal in size. S-shaped scoliotic curvat ure of thoracolumbar spine is noted. IMPRESSION: Limited exam due to positioning. However, perihilar, interstitial, and alveolar opacities do persist , although right upper lobe is not well evaluated on this exam. These findings again may be related to either pulmonary edema or infectious process. Continued followup to resolution is recommended. POS: [facility]
--- NOTE | 2019-05-17 11:26 | PRG ---
DATE OF SERVICE: 05/17/2019 SERVICE: Pulmonary Medicine. INTERVAL HISTORY: The patient is doing absolutely wonderful from respiratory standpoint. She is breathing comfortably. She has no complaints of chest discomfort, nausea, or vomiting. She appears to be fairly comfortable. She did not sleep well last night, but had a couple of naps this morning. Her respiratory rate continues to fall off down closer to a normal range. PHYSICAL EXAMINATION: VITAL SIGNS: Afebrile. Pulse 109, blood pressure 109/73, respirations 30. Saturation 93%, currently on 33% oxygen delivered via high-flow nasal cannula. GENERAL: The patient is awake and alert, in no apparent distress. LUNGS: Very good air entry. There is much improvement in the crackling. No prolonged expiratory phase or wheezing is appreciated. HEART: Normal rate, regular. ABDOMEN: Soft, nontender, and nondistended. Bowel sounds are positive. MUSCULOSKELETAL: No cyanosis or clubbing. There is no pitting in the bilateral lower extremities. NEUROLOGIC: Grossly nonfocal. IMAGING: Chest x-ray demonstrates perihilar interstitial and alveolar opacities persist, but continued clearing is apparent. Lung volumes remain quite small. ASSESSMENT: 1. Acute hypoxic respiratory failure, improving. 2. Community-acquired pneumonia, possible. 3. Herpes labialis, status post initiation of therapy. 4. Interstitial pneumonitis, improving. DISCUSSION AND PLAN: It is not clear to me whether or not the steroids or the antiviral therapy or the rate control of the heart are the thing that is helping. All three treatments will be continued. Since she is getting better, I do not see any need to send for secondary testing at this point. We will drop her FiO2 slightly. If she tolerates this, we can transition to nasal cannula. Pulmonary will follow closely. Job ID: [id number]
[2019-05-17 13:06] VITALS: BMI 39.3
[2019-05-17] MEDS: Acetaminophen 325 MG TAB PO PRN (18:16)
[2019-05-17] MEDS ORDERED: Nystatin Powder 15 GM BOT TOP PRN (18:55)
[2019-05-17] MEDS: Nystatin Powder 15 GM BOT TOP SCH (20:16)
[2019-05-18] MEDS: Acyclovir Sodium 700 MG, Admixture Fee 1 EACH in Sodium Chloride 0.9% 100 ML IVPB SCH ×3 (01:19→18:03)
[2019-05-18] MEDS: Levothyroxine Sodium 25 MCG TAB PO SCH (06:32)
--- NOTE | 2019-05-18 07:54 | PRG ---
DATE OF SERVICE: 05/18/2019 SERVICE: Pulmonary Medicine. INTERVAL HISTORY: The patient is actually doing quite well from respiratory standpoint. At this point, when she is awake, she does fine with nasal cannula , but with sleeping, she desaturates into the upper 80s and is more restless. As such , we put her back on high-flow nasal cannula overnight. She is a little bit agitated , and did not get a lot of rest. That being said, she seems to have her days and nights flip as she spends a significant amount of the daytime sleeping. Otherwise, there has been no interval change to her condition. Her cough continues to get better. She has a little bit of Kera in the intertriginous spaces. As such , we put her on Nystatin powder yesterday. PHYSICAL EXAMINATION: VITAL SIGNS: Afebrile, pulse 103, blood pressure 129/75, respirations 21, saturation 100% on high-flow nasal cannula at 30% FiO2 with a flow of 30 L/min. HEENT: Normocephalic and atraumatic. Sclerae white. Conjunctivae pink. Oral mucosa is moist without lesions. LUNGS: Crackles of nearly resolved. There is minimal rhonchi present. No prolonged expiratory phase or wheezing is appreciated. HEART: Normal rate and regular. ABDOMEN: Soft, nontender, and nondistended. Bowel sounds are positive. MUSCULOSKELETAL: No cyanosis or clubbing. No pitting in the bilateral lower extremities. NEUROLOGIC: Grossly nonfocal. LABORATORY DATA: Blood cultures x2 are unremarkable. Respiratory virus panel is negative. HSV1 is positive. HSV2 is negative. IMAGING DATA: Chest x-ray demonstrates continued resolution in the bilateral lung infiltrates. ASSESSMENT: 1. Acute hypoxic respiratory failure, improving. 2. Community-acquired pneumonia, possible. 3. Herpes labialis, status post initiation of therapy. 4. Interstitial pneumonitis, improving. 5. Kera of the intertriginous spaces. DISCUSSION AND PLAN: I will start to wean the steroids. We will continue our antiviral therapy. She has completed a course of antibiotics directed to community-acquired pneumonia, and the chest x-ray has nearly normalized. We will continue making efforts at weaning her oxygen through time. At this point, she is stable for transition out of the [facility] to the medical unit. Pulmonary/Critical Care will continue to follow along. Job ID: [id number] [facility]
--- NOTE | 2019-05-18 07:59 | RAD ---
PORTABLE CHEST 1 VIEW: DATE: 05/18/2019. TIME: 4:38 a.m. HISTORY: Pneumonia. FINDINGS/IMPRESSION: Comparison is made with the exam of previous day. The heart size is normal. No lobar consolidation, pneumothoraces, or large effusions are seen. Ther e is a suggestion of a small right pleural effusion. There is scoliosis of the spine. POS: [facility]
[2019-05-18] MEDS ORDERED: predniSONE 20 MG TAB PO SCH (08:00)
[2019-05-18] MEDS: predniSONE 20 MG TAB PO SCH (08:27)
[2019-05-18] MEDS: Ferrous Sulfate 325 MG TAB PO SCH ×2 (08:27→20:58)
[2019-05-18] MEDS: Docusate 100 MG CAP PO SCH (08:27)
[2019-05-18] MEDS: Metoprolol Tartrate 25 MG TAB PO SCH ×2 (08:27→20:58)
[2019-05-18] MEDS: guaiFENesin ER 600 MG TAB PO SCH ×2 (08:27→20:53)
[2019-05-18] MEDS: Nystatin Powder 15 GM BOT TOP SCH ×2 (08:28→20:58)
[2019-05-18] MEDS: Acetaminophen 325 MG TAB PO PRN ×2 (08:36→15:57)
[2019-05-19] MEDS: Acyclovir Sodium 700 MG, Admixture Fee 1 EACH in Sodium Chloride 0.9% 100 ML IVPB SCH ×3 (01:18→18:06)
[2019-05-19] MEDS: Levothyroxine Sodium 25 MCG TAB PO SCH (06:00)
[2019-05-19 06:10] LABS: #Basophils 0.1 thou/uL (0.0-0.2); #Eosinphils 0.1 thou/uL (0.0-0.7); #Lymphocytes 2.6 thou/uL (1.20-3.40); #Neutrophils 3.2 thou/uL (1.40-6.50); %Eosinophils 1.3 % (0.0-10.0); %Lymphocytes 37.3 % (21.0-51.0); %Monocytes 14.1 % (0.0-10.0); %Neutrophils 46.4 % (42.0-75.0); Hemoglobin 12.6 g/dL (12.0-16.0); Mean Corpuscular HGB CONC 32.7 g/dL (32.0-36.0); Mean Corpuscular Hemoglobin 33.4 pg (27.0-31.0); Platelet Count 370 thou/uL (130-400); RBC Distribution Width 12.6 % (11.5-14.5); Red Blood Cell (RBC) Count 3.77 mill/uL (4.20-5.40)
[2019-05-19 06:33] LABS: Anion Gap 14 mmol/L (10-20); BUN (Urea Nitrogen) 18 mg/dL (7.0-18.7); Calc. Creatinine Clearance 123 mL/min (70-130); Calcium 8.8 mg/dL (7.8-10.44); Carbon Dioxide 29 mmol/L (22-29); Chloride 101 mmol/L (98-107); Estimated GFR-MDRD Greater than 90; Glucose 78 mg/dL (70-105); Magnesium 2.2 mg/dL (1.6-2.6); Potassium 4.1 mmol/L (3.5-5.1); Sodium 140 mmol/L (136-145)
[2019-05-19] MEDS: Ferrous Sulfate 325 MG TAB PO SCH ×2 (08:57→20:20)
[2019-05-19] MEDS: Docusate 100 MG CAP PO SCH (08:57)
[2019-05-19] MEDS: predniSONE 20 MG TAB PO SCH (08:57)
[2019-05-19] MEDS: Metoprolol Tartrate 25 MG TAB PO SCH ×2 (08:57→20:20)
[2019-05-19] MEDS: guaiFENesin ER 600 MG TAB PO SCH (08:58)
[2019-05-19] MEDS: Nystatin Powder 15 GM BOT TOP SCH ×2 (09:00→20:28)
--- NOTE | 2019-05-19 11:46 | PRG ---
DATE OF SERVICE: 05/19/2019 SUBJECTIVE: This morning, mother at the bedside. She is doing better. Less cough, less shortness of breath. OBJECTIVE: VITAL SIGNS: Blood pressure 94/75, pulse 102, sats 96%, respiratory rate 18. CHEST: No wheezing or crackles. CARDIAC: Normal S1 and S2. No gallops. ABDOMEN: No masses. LABORATORY DATA: White count only 7000. Lytes are normal. ASSESSMENT: Respiratory failure, pneumonia. PLAN: Continue present treatment. She was given acyclovir for herpes ulcer. Neb treatment. Prednisone. We will follow. Job ID: [id number]
[2019-05-19] MEDS ORDERED: Fluconazole 100 MG TAB PO SCH (12:15)
[2019-05-19] MEDS: Acetaminophen 325 MG TAB PO PRN (20:22)
[2019-05-20] MEDS: Acyclovir Sodium 700 MG, Admixture Fee 1 EACH in Sodium Chloride 0.9% 100 ML IVPB SCH ×2 (00:55→09:01)
[2019-05-20] MEDS: Levothyroxine Sodium 25 MCG TAB PO SCH (06:12)
[2019-05-20] MEDS: Fluconazole 100 MG TAB PO SCH (09:01)
[2019-05-20] MEDS: Ferrous Sulfate 325 MG TAB PO SCH ×2 (09:01→20:09)
[2019-05-20] MEDS: Docusate 100 MG CAP PO SCH (09:01)
[2019-05-20] MEDS: predniSONE 20 MG TAB PO SCH (09:01)
[2019-05-20] MEDS: Metoprolol Tartrate 25 MG TAB PO SCH ×2 (09:01→20:10)
[2019-05-20] MEDS: Nystatin Powder 15 GM BOT TOP SCH ×2 (09:02→20:10)
--- NOTE | 2019-05-20 10:30 | PRG ---
DATE OF SERVICE: 05/20/2019 SUBJECTIVE: This morning, she is better as per the family members. OBJECTIVE: VITAL SIGNS: Saturations are 97%, pulse 80, temperature 97, blood pressure 130/82. CHEST: No wheezing or crackles. CARDIAC: Normal S1 and S2. No gallops. ABDOMEN: No masses. ASSESSMENT: 1. Bronchitis. 2. Respiratory failure. 3. Pneumonia. 4. Herpes, much improved. PLAN: Continue PT, supportive care. Hopefully, home in next several days. Job ID: [id number]
[2019-05-20] MEDS: Acetaminophen 325 MG TAB PO PRN (21:37)
[2019-05-21] MEDS: Levothyroxine Sodium 25 MCG TAB PO SCH (06:21)
[2019-05-21] MEDS: Docusate 100 MG CAP PO SCH (08:45)
[2019-05-21] MEDS: Metoprolol Tartrate 25 MG TAB PO SCH ×2 (08:45→20:59)
[2019-05-21] MEDS: predniSONE 20 MG TAB PO SCH (08:45)
[2019-05-21] MEDS: Ferrous Sulfate 325 MG TAB PO SCH ×2 (08:45→20:57)
[2019-05-21] MEDS: Nystatin Powder 15 GM BOT TOP SCH ×2 (08:46→21:02)
[2019-05-21] MEDS: Fluconazole 100 MG TAB PO SCH (08:46)
[2019-05-22] MEDS: Levothyroxine Sodium 25 MCG TAB PO SCH (06:00)
[2019-05-22 08:11] VITALS: TEMP 98
[2019-05-22] MEDS: Metoprolol Tartrate 25 MG TAB PO SCH (09:45)
[2019-05-22] MEDS: predniSONE 20 MG TAB PO SCH (09:45)
[2019-05-22] MEDS: Docusate 100 MG CAP PO SCH (09:45)
[2019-05-22] MEDS: Ferrous Sulfate 325 MG TAB PO SCH (09:45)
[2019-05-22] MEDS: Fluconazole 100 MG TAB PO SCH (09:45)
[2019-05-22] MEDS: Nystatin Powder 15 GM BOT TOP SCH (09:46)
--- NOTE | 2019-05-22 10:16 | PRG ---
DATE OF SERVICE: 05/22/2019 SUBJECTIVE: Yazmin Lewis has no complaints. She is back to room air. OBJECTIVE: VITAL SIGNS: She is afebrile. Oximetry is 93%. Heart rate is 106, blood pressure 117/79. LUNGS: Clear. HEART: Regular rhythm. ABDOMEN: Soft and nontender. IMPRESSION: Pneumonia with acute respiratory distress syndrome, clinically improving. It would be reasonable to see her in 4 to 6 weeks for a repeat chest x-ray. I believe Dr. Lawrence is planning to see her next week. Job ID: [id number]
[2019-05-22 10:58] VITALS: BP 115/78
--- NOTE | 2019-05-23 22:44 | PQF ---
ANASTACIA AWAN JOSEPH [id number] [facility]- B09 [id number] CLINICAL DOCUMENTATION CLARIFICATION FORM: POST DISCHARGE Addendum to original discharge summary date: ____ Late entry note date: __ DATE:05/23/19 ATTN: Patrick Foley Please exercise your independent, professional judgment in responding to the clarification form. Clinical indicators are provided on the bottom of this form for your review Can you please further specify if Sepsis is ruled in or ruled out? Sepsis [X] Ruled in diagnosis [ ] Continue to treat [X] Resolved [ ] Ruled out diagnosis [ ] Cannot rule out diagnosis [ ] Other diagnosis [ ] Unable to determine In addition, please specify: Present on Admission (POA): [X] Yes [ ] No [ ] Unable to determine For continuity of documentation, please document condition throughout progress notes and discharge summary. Thank You. CLINICAL INDICATORS ED Provider 05/09 pg.3 - "Diagnosis: Hypoxia, additional: Pneumonia, Sepsis" H and P 05/09 pg.1- "She was found to have pneumonia in the right lobe" H and P 05/09 pg.1- "She presented with shortness of breath, fever, tachypnea, tachycardia for 1 week." H and P 05/09 pg.2 - " Vital Signs: fever of 100.9, blood pressure 100/60, she was 67% on room air, heart rate was 128, respiratory rate was 29." Laboratory 05/12- - "WBC 11.0H, 11.4H" Laboratory 05/09/19- "Lactic acid 1.6" RISK FACTORS Right lower lobe Pneumonia- H and P pg.3 Acute hypoxic respiratory failure- PN Dr. Pina 05/18 pg.1 Herpes labialis-PN Dr. Pina 05/18 pg.1 Interstitial pneumonitis-PN Dr. Pina 05/18 pg.1 TREATMENTS IV Fluids- DEC 01 Ceftriaxone/ Rocephin 2gm IV- DEC 01 Azithromycin (Zithromax)5mg IV- DEC 01 Levofloxacin 750mg IV- DEC 01 Chest X-ray 05/09 (This form is maintained as a part of the permanent medical record) 2014 [employer]. All Rights Reserved Sharon [email or web address] [phone] MTDD
== END 2019-05-22 15:27 | disposition home or self-care (01) | DRG 193 ==
LOC: ERS 10:29 → IMCU/EMU 14:16
PROVIDERS: ADMIT Specialist; ATTEND Specialist
PROC: 5A09457 Assistance with Respiratory Ventilation, 24-96 Consecutive Hours, Continuous Positive Airway Pressure (ICD-10-PCS; principal; 2019-05-09)
DX: J18.1 Lobar pneumonia, unspecified organism (principal); J96.01 Acute respiratory failure with hypoxia; J84.114 Acute interstitial pneumonitis; E03.9 Hypothyroidism, unspecified; E78.5 Hyperlipidemia, unspecified; B00.1 Herpesviral vesicular dermatitis; B37.2 Candidiasis of skin and nail; Q90.9 Down syndrome, unspecified; Z90.49 Acquired absence of other specified parts of digestive tract; Z79.899 Other long term (current) drug therapy; R00.0 Tachycardia, unspecified; T48.6X5A Adverse effect of antiasthmatics, initial encounter
CPT/HCPCS: 36415; 71045; 71250; 80048; 80053; 82274; 82607; 82746; 82805; 83540; 83550; 83605; 83735; 83880; 84100; 84443; 84484; 85025; 87040; 87529; 87633; 87798; 93306; 94640; 96365; 96367; 96375; J0133; J0456; J0696; J1940; J1956; J2930; J3480; J3490; J7050; J7512; J7620; Q0163

== ENCOUNTER 2019-07-31 12:01 | Outpatient (CLI) | payer OTHER ==
--- NOTE | 2019-07-31 12:21 | RAD ---
XR Chest Pa Lat @ [facility] HISTORY: Dyspnea COMPARISON: 05/18/2019 study. FINDINGS: Heart size and mediastinum are within normal limits. The lungs are clear of any infiltrates . The costophrenic angles are clear no signs any right-sided effusion on this exam. Marked scoliotic change of the spine is noted. IMPRESSION: 1. Scoliosis. 2. No active intrathoracic disease.
== END 2019-07-31 12:02 | disposition home or self-care (01) ==
LOC: RAD 12:01
PROVIDERS: ATTEND Internal Medicine
DX: R06.00 Dyspnea, unspecified (principal); M41.9 Scoliosis, unspecified
CPT/HCPCS: 71046